=== PATIENT | male | born 1995 | race Caucasian/White ===

== ENCOUNTER 2020-01-23 00:39 | Emergency (ER) | payer OTHER ==
[~2020-01-23] VITALS: Ht 188 cm; Wt 99.8 kg
[2020-01-23] MEDS ORDERED: NS 1000ML 1,000 ML ONE (01:03)
[2020-01-23] MEDS ORDERED: ZOFRAN ONE (01:03)
[2020-01-23] MEDS ORDERED: NS 1000ML 1,000 ML IV STA (01:03)
[2020-01-23] MEDS ORDERED: ZOFRAN IV STA (01:03)
--- NOTE | 2020-01-23 01:06 | ER.PDOC ---
General Chief Complaint: Requesting Medical Care Stated Complaint: VOMITING Time seen by MD: 01:05 Source: patient Exam Limitations: no limitations History of Present Illness Initial Comments Nausea/vomiting for being drunk, he drank excessively today. No diarrhea or abdominal pain. Severity/Quality: moderate Associated Symptoms (vomiting): mild vomiting Vital Signs First Vital Signs Date Time Temp Pulse Resp B/P (MAP) Pulse Ox O2 Delivery O2 Flow Rate FiO2 01/23/20 01:14 98.3 96 16 98 01/23/20 01:24 Room Air Last Vital Signs Date Time Temp Pulse Resp B/P (MAP) Pulse Ox O2 Delivery O2 Flow Rate FiO2 01/23/20 01:24 98.3 96 16 99 Room Air Constitutional: no symptoms reported Respiratory: no symptoms reported Cardiovascular: no symptoms reported Gastrointestinal: see HPI Genitourinary: no symptoms reported All Other Systems: Reviewed and Negative Physical Exam General Appearance: No Apparent Distress, WD/WN Neck: Non-Tender, Full Range of Motion, Supple, Normal Inspection Respiratory: chest non-tender, lungs clear, normal breath sounds, no r espiratory distress, no accessory muscle use Cardiovascular: Normal Peripheral Pulses, Regular Rate, Rhythm, No Edema, No Gallop, No JVD, No Murmur Gastrointestinal: Normal Bowel Sounds, Non Tender, Soft Back: Normal Inspection, No CVA Tenderness, No Vertebral Tenderness Extremities: Normal Range of Motion, Non-Tender, Normal Inspection, No Pedal Edema, No Calf Tenderness, Normal Capillary Refill, Pelvis Stable 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, No Motor/Sensory Deficits, Alert, Normal Mood/Affect, Oriented x 3 Skin: Normal Color, Warm/Dry Results/Orders Results/Orders Orders - FROILAN HERNANDEZ MD Cbc With Auto Diff (01/23/20 01:03) Comprehensive Metabolic Panel (01/23/20 01:03) Alcohol(Ml) (01/23/20 01:03) 0.9 % Sodium Chloride (Ns 1000ml) (01/23/20 01:03) Ondansetron Hcl/Pf (Zofran) (01/23/20 01:03) Lipase (01/23/20 01:03) 0.9 % Sodium Chloride (Ns 1000ml) (01/23/20 01:03) Ondansetron Hcl/Pf (Zofran) (01/23/20 01:03) Vital Signs Date Time Temp Pulse Resp B/P (MAP) Pulse Ox O2 Delivery O2 Flow Rate FiO2 01/23/20 01:24 98.3 96 16 99 Room Air 01/23/20 01:14 98.3 96 16 98 Administered Medications Medications (Trade) Dose Ordered Sig/Brayden Route PRN Reason Start Time Stop Time Status Last Admin Dose Admin Ondansetron HCl (Zofran) 4 mg STAT STAT IV 01/23/20 01:03 01/23/20 01:06 DC 01/23/20 01:10 4 MG Sodium Chloride 1,000 ml @ 1,200 mls/hr Q50M STAT IV 01/23/20 01:03 01/23/20 01:52 01/23/20 01:10 1,200 MLS/HR Laboratory Tests Test 01/23/20 00:50 White Blood Count 9.2 10^3/uL (4.5-11.0) Red Blood Count 5.30 10^6/uL (4.50-5.90) Hemoglobin 16.7 g/dL (13.9-16.3) H Hematocrit 45.9 % (37.0-53.0) Mean Corpuscular Volume 86.6 fL (78-100) Mean Corpuscular Hemoglobin 31.5 pg (26-34) Mean Corpuscular Hemoglobin Concent 36.4 g/dL (33-36.5) Red Cell Distribution Width 12.4 % (11.5-14.5) Platelet Count 237 10^3/uL (150-400) Mean Platelet Volume 10.7 fL (7.8-11.0) Neutrophils (%) (Auto) 58.5 % (41.0-85.0) Lymphocytes (%) (Auto) 33.7 % (24.0-44.0) Monocytes (%) (Auto) 6.0 % (5.0-12.0) Neutrophils # (Auto) 5.4 10^3/uL (1.8-7.7) Lymphocytes # (Auto) 3.10 10^3/uL1 (1.0-4.8) Monocytes # (Auto) 0.6 10^3/uL (0.3-0.8) Absolute Immature Granulocyte (auto 0.05 10^3 u/L (0-2) Absolute Eosinophils (auto) 0.1 10^3/uL (0.0-0.2) Immature Granulocytes % 0.50 % (0.00-0.50) Eosinophils % 0.9 % (0.0-5.0) Basophils % 0.4 % (0.0-0.2) H Basophils # 0.0 10^3/uL (0.0-0.1) Sodium Level 144 mmol/L (132-145) Potassium Level 3.6 mmol/L (3.6-5.2) Chloride Level 106.0 mmol/L (96-109) Carbon Dioxide Level 25.8 mmol/L (20.0-32) Anion Gap 15.8 Blood Urea Nitrogen 15 mg/dL (7-18) Creatinine 1.27 mg/dL (0.59-1.40) Estimated GFR () 83.6 (>/=60) Est GFR (CKD-EPI)(Non-Afr Malaysian) 69.1 (>/=60) BUN/Creatinine Ratio 11.0 Glucose Level 123 mg/dL (70-110) H Calcium Level 8.8 mg/dL (8.4-10.5) Total Bilirubin 0.3 mg/dL (0.2-1.0) Aspartate Amino Transferase (AST) 24 U/L (0-35) Alanine Aminotransferase (ALT) 31 U/L (12-78) Alkaline Phosphatase 114 U/L (50-136) Total Protein 8.4 g/dL (6.4-8.2) H Albumin 4.5 g/dL (3.4-5.0) Globulin 3.9 Lipase 107 U/L (114-286) L Serum Alcohol 131 mg/dL (0-50) H Progress Progress Patient feeling better after he had Zofran and hydration. Departure Time of Disposition: 01:35 Disposition: 01 HOME, SELF-CARE Impression: Primary Impression: Alcohol intoxication Additional Impression: Nausea & vomiting Condition: Improved Referrals: PCP,UNKNOWN (PCP) PRIMARY CARE PROVIDER Additional Instructions: F/U with substance abuse program F/U with your PCP in 2-3 days Return to ED if worsening symptoms or concerns Duration or Time Spent with Pa: 45 min Problem Qualifiers Primary Impression: Alcohol intoxication Complication of substance-induced condition: uncomplicated Qualified Codes: F10.920 - Alcohol use, unspecified with intoxication, uncomplicated Additional Impression: Nausea & vomiting Vomiting type: unspecified Vomiting Intractability: intractable Qualified Codes: R11.2 - Nausea with vomiting, unspecified FROILAN HERNANDEZ MD Jan 23, 2020 01:06
[2020-01-23 01:08] LABS: BASOPHIL % 0.4 % (0.0-0.2); EOSINOPHIL # 0.1 10^3/uL (0.0-0.2); EOSINOPHIL % 0.9 % (0.0-5.0); LYMPHOCYTES % 33.7 % (24.0-44.0); MEAN CORP HGB 31.5 pg (26-34); MONOCYTES # 0.6 10^3/uL (0.3-0.8); NEUTROPHIL # 5.4 10^3/uL (1.8-7.7); NEUTROPHILS % 58.5 % (41.0-85.0); PLATELET COUNT 237 10^3/uL (150-400); RED CELL DISTRIBUTION WIDTH 12.4 % (11.5-14.5)
[2020-01-23 01:14] VITALS: BP 135/87
[2020-01-23 01:22] LABS: CALCIUM 8.8 mg/dL (8.4-10.5); CARBON DIOXIDE 25.8 mmol/L (20.0-32)
[2020-01-23 01:24] VITALS: BP 135/87
[2020-01-23 01:38] VITALS: BP 132/70
== END 2020-01-23 01:45 | disposition home or self-care (01) ==
LOC: ER 00:39
DX: F10.129 Alcohol abuse with intoxication, unspecified (principal); R11.2 Nausea with vomiting, unspecified; R10.9 Unspecified abdominal pain; Z79.899 Other long term (current) drug therapy
CPT/HCPCS: 36415; 80053; 80320; 83690; 85025; 96361; 96374; 99283; J2405; J7030